=== PATIENT | male | born 1960 | race Caucasian/White ===

== ENCOUNTER 2020-07-22 13:51 | Outpatient (REF) | payer OTHER, SELFPAY | END 2020-07-22 13:52 | disposition home or self-care (01) | LOC: HO.LAB 13:51 | PROVIDERS: Visit Provider Internal Medicine | DX: Z20.828 Contact with and (suspected) exposure to other viral communicable diseases (principal) | CPT/HCPCS: U0003 ==

== ENCOUNTER 2020-07-28 11:53 | Outpatient (REF) | payer OTHER, SELFPAY | END 2020-07-28 11:54 | disposition home or self-care (01) | LOC: HO.LAB 11:53 | PROVIDERS: Visit Provider Internal Medicine | DX: Z20.828 Contact with and (suspected) exposure to other viral communicable diseases (principal) | CPT/HCPCS: C9803; U0003 ==

== ENCOUNTER 2020-07-30 11:43 | Emergency (ER) | payer OTHER, SELFPAY ==
[2020-07-30 12:24] VITALS: BP 137/69; PULSE 90; RESP 18; TEMP 36.9; O2SAT 97; BMI 35.9
--- NOTE | 2020-07-30 12:39 | CT_ITS ---
EXAMINATION: CT LUMBAR SPINE WITHOUT CONTRAST CLINICAL INFORMATION: Low back pain with numbness and weakness. COMPARISON: None. TECHNIQUE: A noncontrast axial CT scan of the lumbar spine was obtained. Coronal and sagittal reformatted images were generated at the acquisition workstation. This CT examination was performed using dose optimization techniques as appropriate, variously including the following: *Automated exposure control *Adjustment of mA and/or kV according to patient size (this includes techniques or standardized protocols for targeted exams where dose is matched to indication/reason for exam; i.e. extremities or head) *Use of iterative reconstruction technique DLP; 899.35 mGy-cm FINDINGS: There are mild retrolistheses of L2 on L3, L3 on L4 and L5 on S1. There is multilevel narrowing of intervertebral disc height, most severe at L1-L2 and L4-L5 with vacuum disc changes. There are degenerative endplate contrast changes at multiple levels. There are small Schmorl's nodes in the lower thoracic and in the mid and upper lumbar spine. Vertebral body heights are maintained. There are no acute fractures. There are sequelae of a left total hip arthroplasty. There are atheromatous calcifications of the aorta and its branches. No aneurysms are demonstrated. There are sequelae of a instrumented posterior decompression and fusion at L4-L5. There are bilateral pedicular screws in L5. The screws have lucencies around them, consistent with loosening. Spinal levels: T12-L1: There is mild bilateral facet arthropathy. Posterior disc contour appears normal. There is no central stenosis. The neural foramina appear patent. L1-L2: There is moderate bilateral facet arthropathy. There is a posterior disc protrusion with mild distortion of the ventral thecal sac, and there is mild central stenosis. The neural foramina are patent bilaterally. L2-L3: There is moderate bilateral facet arthropathy with ligamenta flava hypertrophy. There is a posterior disc protrusion, and there is mild central stenosis. There is narrowing of the bilateral neural foramina. L3-L4: There is moderate to severe bilateral facet arthropathy. There are sequelae of a posterior decompression and fusion. There is a posterior disc protrusion extending into the neural foramina bilaterally. There is no central stenosis. L4-L5: There are sequelae of a posterior decompression and fusion. There are severe facet arthropathic changes. There is a posterior disc protrusion extending into the neural foramina bilaterally. There is no central stenosis. L5-S1: There are moderate facet arthropathic changes bilaterally. There is a posterior disc protrusion extending into the neural foramina bilaterally. There is no central stenosis. CT/CT lumbar spine wo con IMPRESSION: 1. There are no acute fractures or subluxations. 2. There are sequelae of posterior decompressions and fusions at L3-L4 and L4-L5. Bilateral pedicular screws are noted in the pedicles of L5, with surrounding lucency consistent with loosening. 3. There is multilevel severe spondylosis and facet arthropathy contributing to central stenosis and foraminal narrowing. The foraminal narrowing appears most severe at L3-L4, L4-L5 and L5-S1 bilaterally.
[2020-07-30] MEDS: oxyCODONE HCl Immed Release 5 MG TABLET PO (12:44)
[2020-07-30] MEDS: Ketorolac Tromethamine 30 MG/ML VIAL IM (12:44)
--- NOTE | 2020-07-30 13:09 | ED_ITS ---
HPI - General Adult General Chief complaint: Fall Stated complaint: numbness, back pain Time Seen by Provider: 07/30/20 12:27 Source: patient Mode of arrival: other (uses cane for last 1 year, difficulty ambulating due to pain ) Limitations: no limitations History of Present Illness HPI narrative: 59 y/o male with PMH of chronic lower back pain s/p surgery about 1 year ago at [facility] who is presenting with 3 months of worsening low back pain along with progressive wax/waning LE numbness. He reprots the pain the numbness are making it difficult to walk. He had a fall 3 days ago and then again today due to the pain. He describes the numbness as generalized to his bilateral LE, buttocks and groin. It come and goes and feels like pin-pricks when it comes back. He is feeling sensation improve right now. He denies bowel or bladder incontinence. He took ibuprofen 800 mg this morning with minor improvement. He called his PCP last week and has a planned appointment with a new Neurosurgeon on 08/08. MD complaint: low back pain with LE numbness Onset (ago): month(s) (3) Related Data Previous Rx's Medication Instructions Recorded hydrocodone-acetaminophen [[place]] 1 tab PO Q6H PRN #10 tab 07/30/20 lidocaine [Lidoderm] 1 patch TOPICAL DAILY #15 ea 07/30/20 prednisone 20 mg PO BID #10 tab 07/30/20 Allergies Allergy/AdvReac Type Severity Reaction Status Date / Time No Known Allergies Allergy Unverified 06/09/20 14:44 Review of Systems Review of Systems: Constitutional: No Fever, No Chills ENT/Mouth: No sore throat, No Rhinorrhea, No Swallowing Difficulty Eyes: No Eye Pain, No Swelling, No Redness Cardiovascular: No Chest Pain, No SOB, No Orthopnea, No Edema Respiratory: No Cough, No Sputum, No Wheezing, No dyspnea Gastrointestinal: No Nausea, No Vomiting, No Diarrhea, No abdominal Pain Genitourinary: No Dysuria, No Urinary Frequency, No Hematuria Musculoskeletal: + joint pain, No Myalgias Skin: No Skin Lesions, No rash Neuro: + Weakness, +Numbness, No Dizziness, No Headache Psych: No Anxiety/Panic, No Depression Heme/Lymph: No Bruising, No Lymphadenopathy Endocrine: No Polyuria, No Polydipsia PMFSH Past Medical History Attestation statement: The following information was validated with the patient. Medical History Acid reflux High cholesterol HTN (hypertension) Nerve damage Surgical History H/O shoulder replacement History of hip replacement Previous back surgery Social History Social History Smoking Status: Current every day smoker Use of substances other than those prescribed or required for medical reasons: No Advance Directives: No Advance Directives Information Provided: No Physical Exam Vital Signs: Vital Signs: Last Vital Signs Temp 98.4 F 07/30/20 15:48 Pulse 84 07/30/20 15:48 Resp 18 07/30/20 15:48 BP 136/49 L 07/30/20 15:48 Pulse Ox 96 07/30/20 15:48 Body Mass Index 35.9 Appearance: Alert. Oriented X3. No acute distress. Eyes: Pupils equal, round and reactive to light. ENT: Pharynx normal. Neck: Normal inspection. Neck supple. CVS: Normal heart rate and rhythm. Pulses normal. Respiratory: No respiratory distress. Breath sounds normal. Abdomen: Soft and nontender. +BS x4 Skin: Skin warm and dry. Normal skin color. Normal skin turgor. No rashes. Extremities: No lower extremity edema. Neuro: Oriented X 3. Decreased patellar reflexes bilaterally, normal Achilles reflex, normal rectal tone, decreased sensation to light touch of bilateral LE. +straight leg raise test on the right tenderness of bilateral SI joint, decreased flexion of the lumbar spine Course Course Course Narrative: 59 y/o male with acute on chronic LBP. 2 falls in the last 3 days due to pain and numbness. No IVDA, no fevers, no bowel/bladder incontinence. He has been to this ER several times with the same presentation. He is due to fu with Neurosurgery in [address] scan to evaluate for spinal cord compression. Low suspicion for cauda equina. Reevaluation(s) Reevaluation #1: Upon reassessment pain significantly improved after Toradol and [address]. [address] scan read. Time: 14:34 Reevaluation #2: CT scan showsL 1. There are no acute fractures or subluxations. 2. There are sequelae of posterior decompressions and fusions at L3-L4 and L4-L5. Bilateral pedicular screws are noted in the pedicles of L5, with surrounding lucency consistent with loosening. 3. There is multilevel severe spondylosis and facet arthropathy contributing to central stenosis and foraminal narrowing. The foraminal narrowing appears most severe at L3-L4, L4-L5 and L5-S1 bilaterally. His physical exam findings of bilateral decreased DTR's, normal rectal tone, his denial of incontinence are reassuring against cauda equina. The loosening of the screws need to be evaluated by a Neurosurgeron. There is no emergent need for this right now. Imaging reviewed by Dr. Gonzalez as well who agrees with plan of d/c with pain control and f/u with Neurosurgery early next week. Patient instructed to come back to ER if he develops incontinence, saddle paresthesias. Patient agrees with plan. Time: 16:00 Critical Care Time Critical Care Time Critical Care Time: No Discharge Plan Discharge Clinical Impression: Lumbar spondylolysis, Chronic lumbar radiculopathy, Loosening of hardware in spine Patient Disposition: Home, Self-Care Instructions: Lumbar Radiculopathy (ED), Chronic Back Pain (DC), Lower Back Exercises (ED) Additional Instructions: Use ice and/or heat several times per day to help with pain and discomfort. Limit lifting >5 pounds, bending or twisting. Call your Neurosurgeon Saturday morning and see if your appointment can be moved up. You were provided with a report of the CT scan of your spine. If you develop worsening pain, weakness, numbness or develop incontinence of stool or urine call 911 or come back to the ER right away. Prescriptions: New hydrocodone-acetaminophen [[place]] 5-325 mg tablet 1 tab PO Q6H PRN (Reason: pain) Qty: 10 RF: 0 prednisone 20 mg tablet 20 mg PO BID Qty: 10 RF: 0 lidocaine [Lidoderm] 5 % adhesive patch,medicated 1 patch topical DAILY Qty: 15 RF: 0
[2020-07-30 15:45] VITALS: BP 136/49; PULSE 84; RESP 18; TEMP 36.9; O2SAT 96
[2020-07-30 15:48] VITALS: BP 136/49; PULSE 84; RESP 18; TEMP 36.9; O2SAT 96
== END 2020-07-30 16:26 | disposition home or self-care (01) ==
PROVIDERS: Emergency Provider Emergency Medicine
DX: M43.16 Spondylolisthesis, lumbar region (principal); M54.5 Low back pain; I10 Essential (primary) hypertension; R20.0 Anesthesia of skin; Z79.899 Other long term (current) drug therapy; F17.200 Nicotine dependence, unspecified, uncomplicated; Z71.6 Tobacco abuse counseling
CPT/HCPCS: 72131; 96372; 99284; J1885

== ENCOUNTER 2020-08-04 10:25 | Outpatient (REF) | payer OTHER, SELFPAY | END 2020-08-04 10:26 | disposition home or self-care (01) | LOC: HO.LAB 10:25 | PROVIDERS: Visit Provider Internal Medicine | DX: Z20.828 Contact with and (suspected) exposure to other viral communicable diseases (principal) | CPT/HCPCS: C9803; U0003 ==

== ENCOUNTER 2020-08-05 10:24 | Emergency (ER) | payer OTHER, SELFPAY ==
[2020-08-05 10:52] VITALS: BP 118/72; PULSE 88; RESP 16; TEMP 37.3; O2SAT 96; BMI 35.9
--- NOTE | 2020-08-05 11:26 | ED.BACK ---
HPI - Back Pain/Injury General Chief Complaint: Back Pain/Injury Stated Complaint: BACK PAIN Time Seen by Provider: 08/05/20 10:54 Source: patient Mode of arrival: wheelchair Limitations: no limitations History of Present Illness HPI Narrative: 59 y/o male with history of chronic back pain s/p lumbar surgery 1 year ago presenting with worsening back pain over the last 3 months, significantly worse in the last 1 week. He was seen here on 07/30 - had CT lumbar spine showing his hardware was loosening, severe spondylosis w/ central stenosis and foraminal narrowing. He had no bowel/bladder incontinence at that time and rectal tone was normal. He was prescribed short course of oxycodone with plan to f/u with his Neurosurgeon on 08/08. He presents back today with increased pain radiating up to his neck. He is having worsening numbness of his groin and legs. He admits to 1 episode of urinary incontinence where his urine flow started before he got to the bathroom. He cannot feel when his urine stream stops. He has no bowel incontinence. He is able to ambulate with a cane but it is very painful and he feels very weak and cannot feel his legs. MD elicited complaint: back pain Pertinent past history: prior back pain Onset (ago): week(s) (1) Timing: constant Severity: severe Similar Symptoms Previously: Yes Quality: sharp, aching and tingling Location: lumbar spine Radiation: neck Exacerbating factors: movement and walking Relieving factors: none Associated symptoms: weakness, numbness, difficulty walking, loss of sensation in lower extremities, urinary incontinence and parasthesias Treatments prior to arrival: NSAIDS Work related injury: No Related Data Previous Rx's Medication Instructions Recorded hydrocodone-acetaminophen [[place]] 1 tab PO Q6H PRN #10 tab 07/30/20 lidocaine [Lidoderm] 1 patch TOPICAL DAILY #15 ea 07/30/20 prednisone 20 mg PO BID #10 tab 07/30/20 Allergies Allergy/AdvReac Type Severity Reaction Status Date / Time No Known Allergies Allergy Unverified 06/09/20 14:44 Review of Systems Review of Systems: Constitutional: No Fever, No Chills Cardiovascular: No Chest Pain, No SOB Respiratory: No Cough, No Sputum, Gastrointestinal: No Nausea, No Vomiting, No Diarrhea, No abdominal Pain Genitourinary: No Dysuria, No Urinary Frequency, No Hematuria, +urinary incontinene Musculoskeletal: No joint pain, No Myalgias Skin: No Skin Lesions, No rash Neuro: + Weakness, + Numbness, No Dizziness, No Headache Psych: No Anxiety/Panic, No Depression Heme/Lymph: No Bruising, No Lymphadenopathy PMFSH Past Medical History Medical History Acid reflux High cholesterol HTN (hypertension) Nerve damage Surgical History H/O shoulder replacement History of hip replacement Previous back surgery Social History Social History Alcohol intake: former Smoking Status: Current every day smoker Use of substances other than those prescribed or required for medical reasons: No Advance Directives: No Advance Directives Information Provided: Yes Physical Exam Vital Signs: Vital Signs: Last Vital Signs Temp 98.9 F 08/05/20 13:22 Pulse 83 08/05/20 13:22 Resp 18 08/05/20 13:22 BP 119/70 08/05/20 13:22 Pulse Ox 97 08/05/20 13:22 Body Mass Index 35.9 Appearance: Alert. Oriented X3. No acute distress. Eyes: Pupils equal, round and reactive to light. ENT: Pharynx normal. Neck: Normal inspection. Neck supple. CVS: Normal heart rate and rhythm. Pulses normal. Respiratory: No respiratory distress. Breath sounds normal. Abdomen: Obese, Soft and nontender. +BS x4 Skin: Skin warm and dry. Normal skin color. Normal skin turgor. No rashes. Extremities: No lower extremity edema. Neuro: Oriented X 3. Bilateral lower extremity weakness, decreased DTR bilaterally to knees. sensory deficit to bilateral legs and groin. refusing rectal exam Course Course Course Narrative: 59 y/o male presenting with acute on chronic LBP and new urinary incontinence. No new injury. See here 07/30 for similar presentation but did not have urinary incontinence at that time. Refusing rectal exam at this time. Need to r/o cauda equina with MRI SAGAR. Reevaluation(s) Reevaluation #1: MRI shows compression of the cauda equina nerve root at L4-L5 with disc protrusion and severe canal stenosis. Neurosurgery at [facility] paged. Reevaluation #2: Spoke with NS (Bharat) at [facility] - image upload pending. NS will consult in the ED - recommended ED to ED transfer. Dr. Bedoya in the ED accepts. Arranging ambulance now. Patient updated about imaging results and transfer to [facility]. He agrees with plan. MDM - Back Pain/Injury MDM Narrative Medical decision making narrative: concern for causa equina syndrome Differential Diagnosis Differential diagnosis: Likely lumbar radiculopathy, sciatica, strain of lumbar region, renal colic, pyelonephritis, thoracic back pain and discitis Lab Data Result diagrams: 08/05/20 12:23 08/05/20 12:23 Labs: Lab Results 08/05/20 08/05/20 08/05/20 Range/Units 12:23 12:23 12:23 WBC 12.6 H (4.8-10.8) X10*3/uL RBC 4.25 L (4.60-5.80) X10*6/uL Hgb 13.1 L (14.0-18.0) g/dl Hct 39.5 L (42-52) % MCV 92.9 (80-98) fL MCH 30.8 (27.0-33.0) pg MCHC 33.2 (31.0-36.0) g/dl RDW 13.2 (11.0-16.0) % Plt Count 219 (160-400) X10*3/uL MPV 9.0 L (9.4-12.4) fL Immature Gran % (Auto) 1.1 H (0.0-0.4) % Neut % (Auto) 64.1 (45-73) % Lymph % (Auto) 22.7 (20-40) % [place] % (Auto) 10.3 (2-11) % Eos % (Auto) 1.4 (0-4) % Baso % (Auto) 0.4 (0-2) % Lymph # (Auto) 2.9 (1.2-4.9) X10*3/uL [place] # (Auto) 1.3 H (0.1-1.2) X10*3/uL Eos # (Auto) 0.2 (0.0-0.4) X10*3/uL Baso # (Auto) 0.1 (0.0-0.2) X10*3/uL Abs Immat Gran (auto) 0.14 H (0.00-0.03) X10*3/uL Absolute Neuts (auto) 8.0 (2.0-8.3) X10*3/uL Absolute Nucleated RBC 0.000 (0.0-0.012) X10*3/uL Nucleated RBC % (auto) 0.0 (0.0-0.2) /100WBC Hold Blue Top SEE NOTE Sodium 140 (135-145) mmol/L Potassium 3.7 (3.3-5.1) mmol/l Chloride 103 (96-108) mmol/L Carbon Dioxide 29 (22-29) mmol/L Anion Gap 12 (12-20) BUN 29 H (9-16) mg/dL Creatinine 0.83 (0.5-1.4) mg/dL Estim Creat Clear Calc 123.8 Estimated GFR > 60 Random Glucose 85 (60-115) mg/dL Calcium 8.8 (8.4-10.2) mg/dL Critical Care Time Critical Care Time Critical Care Time: Yes Total Critical Care Time: 35 Attestation: I attest to critical care time taking care of the patient with frequent bedside re-evaluations with probable neurosurgical emergency requiring emergent transfer to acute care facility. Discharge Plan Discharge Clinical Impression: Cauda equina syndrome Patient Disposition: Xfer [facility] Prescriptions: No Action hydrocodone-acetaminophen [[place]] 5-325 mg tablet 1 tab PO Q6H PRN (Reason: pain) Qty: 10 RF: 0 prednisone 20 mg tablet 20 mg PO BID Qty: 10 RF: 0 lidocaine [Lidoderm] 5 % adhesive patch,medicated 1 patch topical DAILY Qty: 15 RF: 0
[2020-08-05] MEDS: oxyCODONE HCl Immed Release 5 MG TABLET PO ×2 (11:30→16:47)
--- NOTE | 2020-08-05 11:46 | PC.NURSE ---
mri screening form obtained and faxed to mri dept
--- NOTE | 2020-08-05 12:17 | PC.NURSE ---
[place] [facility] [place] [facility]
[2020-08-05 12:35] LABS: MANUAL DIFF FLAG NO
[2020-08-05 12:39] LABS: Basophils Absolute Auto 0.1 X10*3/uL (0.0-0.2); Basophils Percent Auto 0.4 % (0-2); Eosinophils Absolute Auto 0.2 X10*3/uL (0.0-0.4); Eosinophils Percent Auto 1.4 % (0-4); Hematocrit 39.5 % (42-52); Hemoglobin 13.1 g/dl (14.0-18.0); Imm Gran Abs Auto 0.14 X10*3/uL (0.00-0.03); Imm Gran Pct Auto 1.1 % (0.0-0.4); Lymphocytes Absolute Auto 2.9 X10*3/uL (1.2-4.9); Lymphocytes Percent Auto 22.7 % (20-40); Mean Corpuscular HGB Conc 33.2 g/dl (31.0-36.0); Mean Corpuscular Hemoglobin 30.8 pg (27.0-33.0); Mean Corpuscular Volume 92.9 fL (80-98); Monocytes Absolute Auto 1.3 X10*3/uL (0.1-1.2); Monocytes Percent Auto 10.3 % (2-11); Neutrophils Percent Auto 64.1 % (45-73); Platelet Count 219 X10*3/uL (160-400); Red Blood Count 4.25 X10*6/uL (4.60-5.80); Red Cell Distribution Width 13.2 % (11.0-16.0); White Blood Count 12.6 X10*3/uL (4.8-10.8)
[2020-08-05 13:07] LABS: Anion Gap 12 (12-20); Blood Urea Nitrogen 29 mg/dL (9-16); Calcium 8.8 mg/dL (8.4-10.2); Carbon Dioxide 29 mmol/L (22-29); Chloride 103 mmol/L (96-108); Creatinine Clr Calc Pharmacy 123.8; Estimated Glomerular Filt Rate > 60; Glucose Random 85 mg/dL (60-115); Potassium 3.7 mmol/l (3.3-5.1); Sodium 140 mmol/L (135-145)
[2020-08-05 13:22] VITALS: BP 119/70; PULSE 83; RESP 18; TEMP 37.2; O2SAT 97
--- NOTE | 2020-08-05 13:59 | MR_ITS ---
MR LUMBAR SPINE WITHOUT AND WITH CONTRAST CLINICAL INFORMATION: Low back pain with urinary incontinence. Rule out cauda equina. COMPARISON: Lumbar spine CT 07/30/2020. TECHNIQUE: MRI of the lumbar spine was obtained using routine sequences with and without contrast. Intravenous contrast: Gadavist 6 mL FINDINGS: There are 5 nonrib-bearing lumbar-type vertebral bodies. There is grade 1 retrolisthesis of L2 on L3 and L3 on L4 that are unchanged. There is no bone marrow edema. There are no acute fractures. The vertebral body heights are maintained. Chronic opposing endplate Schmorl's nodes at L1-L2, L2-L3, and L3-L4. Multilevel endplate osteophytes. Conus terminates at the L1 level. No significant soft tissue findings. L1-L2: There is a diffuse annular disc bulge the superimposed right paracentral disc protrusion that along with epidural lipomatosis results in moderate central canal stenosis and compression of the traversing right L2 nerve root. Mild bilateral foraminal encroachment. L2-L3: Grade 1 retrolisthesis. Diffuse annular disc bulge and epidural lipomatosis result in moderate central canal stenosis. Moderate bilateral facet arthropathy. Mild to moderate right and mild left foraminal stenosis. L3-L4: Diffuse annular disc bulge and severe bilateral facet arthropathy and ligamentum flavum thickening. Laminectomy changes. There is enhancing granulation/scar tissue within the laminectomy bed. Disc osteophyte and facet arthropathy result in moderate to severe bilateral foraminal stenosis with compression of the exiting L3 nerve roots bilaterally. L4-L5: There are laminectomy changes. There is a large recurrent central disc herniation that results in severe central canal stenosis and compression of the cauda equina nerve roots. There is some enhancement of the cauda equina nerve roots at this level, presumably from compression. Surgical screws transfixing the posterior elements at L4-L5 are better demonstrated on the prior CT study. Disc protrusions and facet arthropathy result in severe bilateral foraminal stenosis with compression of the exiting L4 nerve roots bilaterally at L4. L5-S1: There is a right paracentral disc protrusion that results in mass effect on the traversing right S1 nerve root within the right subarticular zone. Background annular disc bulge. Mild to moderate right and mild left foraminal stenosis. MR/MR lumbar spine wo/w con IMPRESSION: - At L4-L5 there are laminectomy changes and there is a large recurrent central disc protrusion that results in severe central canal stenosis and compression of the cauda equina nerve roots. There is some enhancement of the cauda equina nerve roots at this level, presumably from compression. Surgical screws transfixing the posterior elements at L4-L5 are better demonstrated on the prior CT study. - At L5-S1, a right paracentral disc protrusion results in mass effect on the traversing right S1 nerve root within the right subarticular zone. - Spondylitic changes in epidural lipomatosis contribute to moderate central canal stenosis at the L1-L2, L2-L3, and L3-L4 levels. Right paracentral disc protrusions at L1-L2 and L2-L3 compress the traversing right nerve roots at both of these levels. At L3-L4, multifactorial degenerative changes result in moderate to severe bilateral foraminal stenosis with compression of the exiting L3 nerve roots bilaterally. Covering provider has been paged with these findings at 3:37 PM on 08/05/2020
--- NOTE | 2020-08-05 14:27 | PC.NURSE ---
patient to mri
[2020-08-05] MEDS: Ibuprofen 600 MG TABLET PO (15:55)
[2020-08-05] MEDS: Acetaminophen 325 MG TABLET 975 MG PO (15:56)
--- NOTE | 2020-08-05 16:48 | PC.NURSE ---
patient medicated per order
[2020-08-05 16:54] VITALS: BP 118/73; PULSE 84; RESP 18; TEMP 37.1; O2SAT 97
--- NOTE | 2020-08-05 16:55 | PC.NURSE ---
patient a&ox3, medicated for pain, vss, patient awaiting mri results, will continue to monitor.
== END 2020-08-05 17:12 | disposition short-term general hospital (02) ==
PROVIDERS: Physician Assistant; Emergency Provider Emergency Medicine
DX: G83.4 Cauda equina syndrome (principal); M54.5 Low back pain; I10 Essential (primary) hypertension; F17.200 Nicotine dependence, unspecified, uncomplicated; Z71.6 Tobacco abuse counseling; Z79.899 Other long term (current) drug therapy
CPT/HCPCS: 36415; 72158; 80048; 85025; 99285; 99291; A9585

== ENCOUNTER 2020-08-10 08:58 | Outpatient (REF) | payer OTHER, SELFPAY ==
--- NOTE | 2020-08-10 09:06 | XR_ITS ---
EXAMINATION: XR LUMBOSACRAL SPINE WITH OBLIQUES CLINICAL INFORMATION: Spondylolisthesis, follow-up. COMPARISON: MRI of the lumbar spine dated 08/05/[address] scan of the lumbar spine dated 07/30/2020. TECHNIQUE: AP, both oblique, and lateral views of the lumbar spine. Lateral view of the lumbosacral junction. FINDINGS: Moderate multilevel degenerative disc disease is again seen. There is grade 1 anterolisthesis of L4 over L5 with 6 mm displacement in the neutral position, 4 mm displacement with extension and 7 mm displacement with flexion. Additionally, there is a grade 1 retrolisthesis of L2 over L3 demonstrating 6 mm displacement in neutral, extension and flexion positions. Bilateral posterior element hardware at L5 appears intact. XR/XR lumbar spine 6V w bending IMPRESSION: Grade 1 retrolisthesis at L3-4 and L4-5 as detailed above. Please refer to report from the previous lumbar spine CT and MRI studies for more detailed findings regarding degenerative disc disease.
== END 2020-08-10 08:59 | disposition home or self-care (01) ==
LOC: HO.XRAY 08:58
PROVIDERS: Visit Provider Internal Medicine
DX: M43.16 Spondylolisthesis, lumbar region (principal)
CPT/HCPCS: 72114

== ENCOUNTER 2020-08-10 14:58 | Outpatient (REF) | payer OTHER, SELFPAY | END 2020-08-10 14:59 | disposition home or self-care (01) | LOC: HO.LAB 14:58 | PROVIDERS: Visit Provider Internal Medicine | DX: Z20.828 Contact with and (suspected) exposure to other viral communicable diseases (principal) | CPT/HCPCS: C9803; U0003 ==

== ENCOUNTER 2020-08-25 16:16 | Outpatient (REF) | payer OTHER, SELFPAY | END 2020-08-25 16:17 | disposition home or self-care (01) | LOC: HO.LAB 16:16 | PROVIDERS: Visit Provider Internal Medicine | DX: Z20.828 Contact with and (suspected) exposure to other viral communicable diseases (principal) | CPT/HCPCS: C9803; U0003 ==

== ENCOUNTER 2020-10-06 13:30 | Outpatient (REF) | payer OTHER, SELFPAY | END 2020-10-06 13:31 | disposition home or self-care (01) | LOC: HO.LAB 13:30 | PROVIDERS: PCP Internal Medicine; Visit Provider Internal Medicine | DX: Z20.822 Contact with and (suspected) exposure to COVID-19 (principal) | CPT/HCPCS: 36415; C9803; U0003 ==